=== PATIENT | female | born 1990 | race Caucasian/White ===

== ENCOUNTER 2017-11-04 19:54 | Emergency (ER) | payer OTHER, SELFPAY ==
[2017-11-04 19:56] VITALS: BP 126/75; PULSE 92; RESP 14; TEMP 37.2; O2SAT 92; BMI 32.5
[2017-11-04 20:33] LABS: Basophils % 0.3 % (0.1-2.0); Eosinophils % 0.2 % (0.1-12.0); Lymphocytes # 0.9 K/mm3 (0.7-4.5); Lymphocytes % 12.5 K/mm3 (10-50); Mean Corpuscular HGB Conc 33.5 g/dL (31.8-35.4); Mean Corpuscular Volume 89.6 fl (81-99); Mean Platelet Volume 7.6 fl (7.4-10.4); Monocytes # 0.2 K/mm3 (0.1-1.0); Monocytes % 3.3 % (1.7-9.3); Neutrophils # 5.9 K/mm3 (1.8-7.8); Neutrophils % 83.7 % (37.0-80.0); Platelet Count 289 K/mm3 (142-424); Red Blood Count 2.63 M/mm3 (4.20-5.40); Red Cell Distribution Width 12.5 % (11.5-17.5)
--- NOTE | 2017-11-04 20:40 | [facility].EDGENADL ---
ED Disposition Clinical Impression: Anemia due to blood loss Disposition: Home, Self-Care Condition on Discharge: Good Additional Instructions: Continue to monitor for fever and return if greater than 101?. Return if any heavy bleeding. Follow-up with your cs associate on Monday. Referrals: Curtis Stevenson MD [Primary Care Provider] - - Critical Care Critical Care Time: No Attestation: On 11/04/17, the high probability of a clinically significant, sudden or life threatening deterioration of the following system(s) required my full and direct attention, intervention and personal management. The time I documented below is in addition to time spent performing reported procedures but includes the following listed in this critical care notation. Medical Decision Making - Bandar Inquiry Pt receiving controlled substance: No Vital Signs: 11/04/17 19:56 Temperature 99 F Temperature Source Oral Pulse Rate [Left Radial] 92 H Respiratory Rate 14 Blood Pressure [Right Arm] 126/75 Blood Pressure Mean [Right Arm] 92 Blood Pressure Source [Right Arm] Automatic Cuff Blood Pressure Position [Right Arm] Sitting 02 Sat by Pulse Oximetry 92 L Oxygen Delivery Method Room Air - Lab Data Lab Results 11/04/17 20:10: WBC 7.0, RBC 2.63 L, Hgb 7.9 L*, Hct 23.5 L*, MCV 89.6, MCH 30.0, MCHC 33.5, RDW 12.5, Plt Count 289, MPV 7.6, Neut % (Auto) 83.7 H, Lymph % (Auto) 12.5, Catron % (Auto) 3.3, Eos % (Auto) 0.2, Baso % (Auto) 0.3, Neut # (Auto) 5.9, Lymph # (Auto) 0.9, Catron # (Auto) 0.2, Eos # (Auto) 0.0, Baso # (Auto) 0.0 11/04/17 20:10: Sodium 140, Potassium 3.6, Chloride 106, Carbon Dioxide 24, Anion Gap 13.6, BUN 6 L, Creatinine 0.59, Estimated Creat Clear 199, Estimated GFR 121, Est GFR ( Amer) 147, Glucose 129 H, Calcium 8.2 L, Total Bilirubin 0.3, AST 7 L, ALT 16, Alkaline Phosphatase 50, Total Protein 6.0 L, Albumin 3.1 L, Globulin 2.9, Albumin/Globulin Ratio 1.1, Amylase 23 L, Lipase 58 L 11/04/17 20:10: Lactic Acid 1.1 Result diagrams: 11/04/17 20:10 11/04/17 20:10 Orders (Tests/Meds): ED MEDICATIONS Discontinued Medications Generic Name Dose Route Start Last Admin Trade Name Alejandro PRN Reason Stop Dose Admin Sodium Chloride 1,000 mls @ 999 mls/hr 11/04/17 20:15 11/04/17 20:15 Sod Chlor 0.9% 1000ml Bag IV 11/04/17 21:15 999 mls/hr .[id number] CAROL Administration ORDERS Category Date Time Status Blood Culture Stat Micro 11/04/17 20:10 Received Medical Decision Narrative: 9:20 PM: Records received from [facility]. The patient's initial hemoglobin was 9.4, it dropped to 8.0 at the time of discharge. It is stable at this time. I do not feel she needs a transfusion. I feel she can be discharged and she very much wants to be discharged and says she will follow-up with her cs associate on Monday. Advised to continue to monitor for fever and return if elevated. General Adult HPI - General Chief complaint: Weakness Stated complaint: general weakness Time Seen by Provider: 11/04/17 20:42 Mode of Arrival: Ambulatory Limitations: No Limitations Description of Symptoms (Recalled from ER Triage Doc. by RN): she was at [facility] today for a D&C for abnormal uterine after miscarriage. - History of Present Illness HPI narrative: The patient states that she found out on October 20 that she was 9 weeks with intrauterine demise. She says that she refused a D&C. She says that she saw her cs associate in [place] on Monday 3 days ago and was again given the option of a D&C. She again refused. She says that she was told she may hemorrhage and if she hemorrhaged heavily to go to the emergency room. This morning she began bleeding very heavily passing large clots and drove herself emergency room at [facility] in [place]. She says that her blood count was 24 . She says that she had been passing out and was lightheaded and they gav
[2017-11-04 20:44] LABS: Hemoglobin 7.9 g/dL (12.2-16.2)
[2017-11-04 20:45] LABS: Hematocrit 23.5 % (37.0-47.0)
[2017-11-04 20:50] LABS: Alanine Aminotransferase 16 U/L (12-78); Albumin Level 3.1 gm/dL (3.4-5.0); Albumin/Globulin Ratio 1.1 (1.1-1.8); Alkaline Phosphatase 50 U/L (46-116); Amylase 23 U/L (25-125); Anion Gap 13.6 mEq/L (5-15); Aspartate Amino Transferase 7 U/L (15-37); Bilirubin,Total 0.3 mg/dL (0.2-1.0); Blood Urea Nitrogen 6 mg/dL (7-18); Calcium 8.2 mg/dL (8.5-10.1); Carbon Dioxide 24 mmol/L (21.0-32.0); Chloride 106 mmol/L (98-107); Creatinine Clearance Estimated 199 mL/min (0-300); Creatinine,Serum 0.59 mg/dL (0.55-1.02); Estimated Glomerular Filt Rate 121 ml/min (>60); GFR (African American) 147 ML/MIN (>60); Globulin 2.9 gm/dl (1.3-3.2); Glucose 129 mg/dL (74-106); Lipase 58 u/L (73-393); Potassium 3.6 mmoL/L (3.5-5.1); Sodium 140 mmol/L (136-145)
[2017-11-04 20:52] LABS: Lactic Acid 1.1 mmol/L (0.4-2.0)
[2017-11-04 21:25] VITALS: BP 112/74; PULSE 83; O2SAT 100
[2017-11-04 21:33] VITALS: BP 102/62; PULSE 74; RESP 14; TEMP 36.9; O2SAT 100
== END 2017-11-04 21:37 | disposition home or self-care (01) ==
PROVIDERS: Emergency Provider Emergency Medicine; Family Provider Family Medicine; PCP Family Medicine
DX: D50.0 Iron deficiency anemia secondary to blood loss (chronic) (principal); F17.210 Nicotine dependence, cigarettes, uncomplicated
CPT/HCPCS: 36415; 80053; 82150; 83605; 83690; 85025; 87040; 99283